=== PATIENT | female | born 1960 | race Caucasian/White ===

== ENCOUNTER 2018-08-18 16:42 | Emergency (ER) | payer BC, SELFPAY ==
[2018-08-18] MEDS ORDERED: Lidocaine 1% PF 5 ML VIAL ONE (17:29)
[2018-08-18] MEDS ORDERED: Adacel (T-DAP) 0.5 ML SYRINGE ONE (17:51)
== END 2018-08-18 18:47 | disposition home or self-care (01) ==
LOC: ERS 16:42
DX: S01.01XA Laceration without foreign body of scalp, initial encounter (principal); M19.90 Unspecified osteoarthritis, unspecified site; I10 Essential (primary) hypertension; J45.909 Unspecified asthma, uncomplicated; E11.9 Type 2 diabetes mellitus without complications; F17.210 Nicotine dependence, cigarettes, uncomplicated; Z71.6 Tobacco abuse counseling; Z79.899 Other long term (current) drug therapy; W10.9XXA Fall (on) (from) unspecified stairs and steps, initial encounter
CPT/HCPCS: 12001; 90471; 90715; 99406; J2001

== ENCOUNTER 2025-07-23 19:30 | Emergency (ER) | payer BC, SELFPAY | END 2025-07-23 20:03 | disposition home or self-care (01) | LOC: ERS 19:30 | DX: Z76.0 Encounter for issue of repeat prescription (principal); E11.9 Type 2 diabetes mellitus without complications; I10 Essential (primary) hypertension; F17.210 Nicotine dependence, cigarettes, uncomplicated | CPT/HCPCS: 99281 ==